=== PATIENT | male | born 1965 | race Caucasian/White ===

== ENCOUNTER 2019-11-18 11:20 | Outpatient (REF) | payer OTHER, SELFPAY ==
[2019-11-18 12:38] LABS: Anion Gap 11 (12-20); Blood Urea Nitrogen 16 mg/dL (9-16); Carbon Dioxide 27 mmol/L (22-29); Chloride 104 mmol/L (96-108); Estimated Glomerular Filt Rate > 60; Potassium 4.5 mmol/l (3.3-5.1); Sodium 137 mmol/L (135-145)
== END 2019-11-18 11:21 | disposition home or self-care (01) ==
LOC: HO.10HDL 11:20
PROVIDERS: Visit Provider Family Medicine
DX: I10 Essential (primary) hypertension (principal)
CPT/HCPCS: 80051; 82565; 84520

== ENCOUNTER 2019-12-12 09:54 | Outpatient (REF) | payer OTHER, SELFPAY ==
[2019-12-12 14:15] LABS: Estimated Average Glucose 108 mg/dL; Hemoglobin A1c % 5.4 %
[2019-12-12 14:23] LABS: Cholesterol 143 mg/dL; Glucose Fasting 102 mg/dL (60-99); HDL Cholesterol 53 mg/dL; LDL Cholesterol Calculated 71 mg/dl; Triglycerides 98 mg/dL
== END 2019-12-12 09:55 | disposition home or self-care (01) ==
LOC: HO.10HDL 09:54
PROVIDERS: Visit Provider Family Medicine
DX: E78.00 Pure hypercholesterolemia, unspecified (principal); R73.9 Hyperglycemia, unspecified; Z79.899 Other long term (current) drug therapy
CPT/HCPCS: 80061; 82947; 83036

== ENCOUNTER 2020-10-12 10:27 | Outpatient (REF) | payer OTHER, SELFPAY ==
[2020-10-12 14:00] LABS: Anion Gap 11 (12-20); Blood Urea Nitrogen 14 mg/dL (9-16); Carbon Dioxide 25 mmol/L (22-29); Chloride 106 mmol/L (96-108); Cholesterol 148 mg/dL; Estimated Glomerular Filt Rate > 60; Glucose Fasting 96 mg/dL (60-99); HDL Cholesterol 55 mg/dL; LDL Cholesterol Calculated 73 mg/dl; Potassium 4.4 mmol/L (3.3-5.1); Sodium 138 mmol/L (135-145); Triglycerides 101 mg/dL
== END 2020-10-12 10:28 | disposition home or self-care (01) ==
LOC: HO.10HDL 10:27
PROVIDERS: Visit Provider Family Medicine
DX: E78.00 Pure hypercholesterolemia, unspecified (principal); R73.9 Hyperglycemia, unspecified; I10 Essential (primary) hypertension
CPT/HCPCS: 36415; 80051; 80061; 82565; 82947; 84520

== ENCOUNTER 2021-06-14 10:34 | Outpatient (REF) | payer OTHER, SELFPAY ==
[2021-06-14 11:42] LABS: Alanine Aminotransferase 23 U/L (0-40); Anion Gap 11 (12-20); Blood Urea Nitrogen 16 mg/dL (9-16); Carbon Dioxide 25 mmol/L (22-29); Chloride 105 mmol/L (96-108); Cholesterol 152 mg/dL; Estimated Glomerular Filt Rate > 60; Glucose Fasting 99 mg/dL (60-99); HDL Cholesterol 49 mg/dL; LDL Cholesterol Calculated 84 mg/dl; Potassium 4.5 mmol/L (3.3-5.1); Sodium 136 mmol/L (135-145); Triglycerides 98 mg/dL
== END 2021-06-14 10:35 | disposition home or self-care (01) ==
LOC: HO.LAB 10:34
PROVIDERS: PCP Family Medicine; Visit Provider Family Medicine
DX: I10 Essential (primary) hypertension (principal); E78.00 Pure hypercholesterolemia, unspecified; Z79.899 Other long term (current) drug therapy; Z83.3 Family history of diabetes mellitus
CPT/HCPCS: 36415; 80051; 80061; 82550; 82565; 82947; 84460; 84520

== ENCOUNTER 2022-02-24 10:31 | Outpatient (REF) | payer OTHER, SELFPAY ==
[2022-02-24 14:24] LABS: Anion Gap 15 (12-20); Blood Urea Nitrogen 15 mg/dL (9-16); Carbon Dioxide 22 mmol/L (22-29); Chloride 104 mmol/L (96-108); Estimated Glomerular Filt Rate > 60; Potassium 4.4 mmol/L (3.3-5.1); Sodium 137 mmol/L (135-145)
[2022-02-24 14:32] LABS: Prostate Specific Antigen 1.33 ng/mL (<0.05-4.0)
== END 2022-02-24 10:32 | disposition home or self-care (01) ==
LOC: HO.HMGCLDS 10:31
PROVIDERS: PCP Family Medicine; Visit Provider Family Medicine
DX: I10 Essential (primary) hypertension (principal); N40.0 Benign prostatic hyperplasia without lower urinary tract symptoms; Z12.5 Encounter for screening for malignant neoplasm of prostate
CPT/HCPCS: 36415; 80051; 82565; 84153; 84520

== ENCOUNTER 2023-01-23 10:09 | Outpatient (REF) | payer OTHER, SELFPAY ==
[2023-01-23 14:08] LABS: Alanine Aminotransferase 22 U/L (0-40); Anion Gap 11 (12-20); Aspartate Amino Transferase 22 U/L (5-37); Blood Urea Nitrogen 16 mg/dL (9-16); Carbon Dioxide 24 mmol/L (22-29); Chloride 105 mmol/L (96-108); Cholesterol 147 mg/dL (<200); Estimated Glomerular Filt Rate > 60; Glucose Fasting 106 mg/dL (60-99); HDL Cholesterol 52 mg/dL (>40); LDL Cholesterol Calculated 83 mg/dL (<100); Potassium 4.2 mmol/L (3.3-5.1); Sodium 136 mmol/L (135-145); Triglycerides 64 mg/dL (<150)
== END 2023-01-23 10:10 | disposition home or self-care (01) ==
LOC: HO.HMGCLDS 10:09
PROVIDERS: PCP Family Medicine; Visit Provider Family Medicine
DX: I10 Essential (primary) hypertension (principal); E78.00 Pure hypercholesterolemia, unspecified; R73.9 Hyperglycemia, unspecified; Z79.899 Other long term (current) drug therapy
CPT/HCPCS: 36415; 80051; 80061; 82550; 82565; 82947; 84450; 84460; 84520

== ENCOUNTER 2023-08-28 09:00 | Day surgery (SDC) | payer OTHER, SELFPAY ==
[2023-08-26 14:39] VITALS: BMI 26.4
[2023-08-28 09:27] VITALS: BMI 26.3
[2023-08-28 09:30] VITALS: BP 148/87; PULSE 90; RESP 18; TEMP 36.9; O2SAT 98
--- NOTE | 2023-08-28 09:35 | P.CONAN_ITS ---
[facility] Past Medical History Medical History Elevated cholesterol HTN (hypertension) Family History Family history of problems with anesthesia: No Surgical History Surgical History (Updated 08/26/23 @ 14:39 by Nafisa Maguire RN) History of open reduction and internal fixation (ORIF) procedure H/O colonoscopy History of Problems with Anesthesia: No Social History Social History (Updated 08/26/23 @ 14:40 by Nafisa Maguire RN) Patient Tobacco Use Status: Former Tobacco user Tobacco use type: Cigarette Use of substances other than those prescribed or required for medical reasons: Yes Substance Use Type Other:: every other day Are you DNR?: No Advance Directives Date on File: 11/18/19 Meds Allergies Allergy/AdvReac Type Severity Reaction Status Date / Time No Known Allergies Allergy Verified 08/28/23 09:23 Active Medications: Current Medications Sodium Biphosphate/Sodium Phosphate (Sodium Phosphate,[place]-Dibasic 133 Ml Enema) 133 ml ND ONCE PRN PRN Reason: Poor Colonoscopy Prep Results Home Medications ?Medication ?Instructions ?Recorded ?Confirmed ?Last Taken ?Type lisinopril 10 mg tablet 10 mg PO DAILY 08/26/23 08/26/23 Unknown History simvastatin 40 mg tablet 40 mg PO BEDTIME 08/26/23 08/26/23 Unknown History Exam Height,Weight and Vital Signs: Height 5 ft 9 in Weight 80.739 kg Airway Mallampati Class: II TM Dist: >3cm Neck ROM: Full Assessment and Plan Assessment Anesthesia Assessment: Anesthesia Plan Discussed and Chart Reviewed Final Anesthetic Review Family History of Problems with Anesthesia: No History of Problems with Anesthesia: No ASA Class: II Final Preanesthetic Review: No Changes in Pt Med Stat, Meds/Allgs Chart Reviewed, Consent Obtained/Reviewed and Anes Risks/Benef Reviewed Patient Risk: Low Procedure Risk: Low Anesthetic Plan Anesthetic Plan: TIVA Disposition: Standard PACU
[2023-08-28] MEDS: Lactated Ringers 1,000 ML 100 ML IVCONT (09:54)
--- NOTE | 2023-08-28 10:26 | PC.NURSE ---
24hr update documented on paper
--- NOTE | 2023-08-28 10:46 | P.BOP_ITS ---
Brief Operative Note Date of Service: 08/28/23 Pre-op diagnosis: Screening Post-op diagnosis: other (Diverticulosis) Procedure: Colonoscopy to the cecum and TI Surgeon: Arian Mccoy MD Anesthesia: MAC Was an Global Upstream Marketing Manager used for this Procedure?: No Estimated blood loss (mL): 0 Pathology: none sent Condition: stable Disposition: PACU
[2023-08-28 10:47] VITALS: BP 101/66; PULSE 75; RESP 14; TEMP 36.6; O2SAT 97
[2023-08-28 11:02] VITALS: BP 114/76; PULSE 78; RESP 20; TEMP 36.6; O2SAT 99
--- NOTE | 2023-08-28 22:23 | OP_ITS ---
DATE OF SERVICE: 08/28/2023 SURGEON: Arian Mccoy MD INDICATIONS: The patient presents for evaluation of colorectal cancer screening and personal history of tubular adenoma of the colon. Full consent was obtained from him for this, including risks of bleeding and perforation. PREOPERATIVE DIAGNOSIS: Colorectal cancer screening and personal history of tubular adenoma of the colon. POSTOPERATIVE DIAGNOSIS: PROCEDURE PERFORMED: Colonoscopy to cecum and terminal ileum. ESTIMATED BLOOD LOSS: COMPLICATIONS: ANESTHESIA: Monitored anesthesia care. ASSISTANTS: SPECIMENS: POSTOPERATIVE DIAGNOSES: Colorectal cancer screening and personal history of tubular adenoma of the colon, mild sigmoid diverticulosis, small internal hemorrhoids. DESCRIPTION OF PROCEDURE: The patient was placed in the left lateral decubitus position. The digital rectal exam revealed no abnormalities. The Olympus video pediatric colonoscope was entered into the rectum and advanced easily to the cecum. Once in the cecum, I did identify normal-appearing cecal pouch with appendiceal orifice and a normal-appearing ileocecal valve. The terminal ileum was cannulated and appeared normal. The scope was withdrawn back in the colon. The entire cecum and ileocecal valve appeared normal. The scope was then slowly withdrawn assessing all mucosal surfaces carefully. Preparation was excellent. I did not visualize any sign of polyps, colitis, nor angiodysplasia. There was a mild amount of sigmoid diverticulosis. In the rectum, scope was retroflexed visualizing small internal hemorrhoids, but no other pathology. The rectal mucosa appeared normal. Scope was straightened and withdrawn from the patient. He tolerated the procedure well and was returned to the recovery area in stable condition. IMPRESSION: 1. Mild sigmoid diverticulosis. 2. Small internal hemorrhoids. PLAN: Given his previous history, I would recommend a followup colonoscopy in 5 years for surveillance. He will otherwise see me on a p.r.n. basis. MD TIMMY Souza/TERESA / [phone]
== END 2023-08-28 11:18 | disposition home or self-care (01) ==
LOC: HO.SSS 12:38
PROVIDERS: PCP Family Medicine; Visit Provider Internal Medicine
PROC: 0DJD8ZZ Inspection of Lower Intestinal Tract, Via Natural or Artificial Opening Endoscopic (ICD-10-PCS; CPT 45378; principal; 2023-08-28 10:10)
DX: Z12.11 Encounter for screening for malignant neoplasm of colon (principal); Z86.010 Personal history of colon polyps; K57.30 Diverticulosis of large intestine without perforation or abscess without bleeding; K64.8 Other hemorrhoids; I10 Essential (primary) hypertension; E78.5 Hyperlipidemia, unspecified; Z79.899 Other long term (current) drug therapy; Z87.891 Personal history of nicotine dependence
CPT/HCPCS: 45378; J2704

== ENCOUNTER 2023-09-04 10:03 | Outpatient (REF) | payer OTHER, SELFPAY ==
[2023-09-04 11:07] LABS: Alanine Aminotransferase 23 U/L (0-40); Anion Gap 12 (12-20); Aspartate Amino Transferase 18 U/L (5-37); Blood Urea Nitrogen 14 mg/dL (9-16); Carbon Dioxide 22 mmol/L (22-29); Chloride 107 mmol/L (96-108); Estimated Glomerular Filt Rate > 60; Sodium 137 mmol/L (135-145)
== END 2023-09-04 10:04 | disposition home or self-care (01) ==
LOC: HO.10HDL 10:03
PROVIDERS: Visit Provider Family Medicine
DX: I10 Essential (primary) hypertension (principal); E78.00 Pure hypercholesterolemia, unspecified
CPT/HCPCS: 36415; 80051; 82550; 82565; 84450; 84460; 84520

== ENCOUNTER 2024-02-19 09:39 | Outpatient (REF) | payer BC, SELFPAY ==
--- OUTSIDE RECORDS SUMMARY | 2024-02-19 09:44 | XMS_ITS ---
Author Organization [facility] Address [address] [place] [address] Care Team Providers Care Retaining Room Cutter Name Role Phone Milind Mcnair MD Primary Care Provider Unavailab Arian Starks Unavailable [phone] REASON FOR VISIT PLEASE OBTAIN INSURANCE PHONE NUMBER Encounters Encounter Location Date Provider Diagnosis [facility] [address] [place] [address] 04/01/2023 Arian Mccoy PLAN OF TREATMENT No Information
--- OUTSIDE RECORDS SUMMARY | 2024-02-19 09:44 | XMS_ITS ---
Author Organization [facility] Address [address] [place] [address] Care Team Providers Care Diabetes Clinical Manager Name Role Phone Xu KHAN, Milind Primary Care Provider Arian Leo Unavailable [phone] ALLERGIES No Known Allergies REASON FOR VISIT Patient presents today for a screening colonoscopy MEDICATIONS Medication SIG (Take, Route, Fr equency, Duration) Notes Start Date End Date Status Simvastatin 40 MG 1 tablet in the even ing Orally Once a day Active Lisinopril 10 MG 1 tablet Orally Once a day Active SOCIAL HISTORY Tobacco Use: Social History Observation Description Date Details (start date - stop date) Former Smoker NA - NA Sex Assigned At : Social History Observation Description Sex Assigned At Unknown Tobacco Use/Smoking Question Answer Notes Patient is a former smoker How long has it been since you last smoked? > 10 years Alcohol Screen Question Answer Notes Did you have a drink contain ing alcohol in the past year? Yes How often did you have a dri nk containing alcohol in the past year? 2 to 4 times a month (2 points) How many drinks did you have on a typical day when you were drinking in the past year? 3 or 4 drinks (1 point) How often did you have 6 or more drinks on one occasion in the past year? Never (0 point) Points 3 Interpretation Negative PROBLEMS Problem Type ICD Code Onset Dates Problem Status W/U Status Risk SNOMED Code Notes Problem History of adenomatous polyp of colon (Z86.010) Active confirmed History of adenomatous polyp of colon (863121327) VITAL SIGNS BMI 26.47 kg/m2 05/01/2023 Blood pressure systolic 000 mm Hg 05/01/19 24 Blood pressure diastolic 00 mm Hg 024 Height 69 in 05/01/2023 Temperature 97.7 degrees Fahrenheit 05/01/19 24 Weight 179 lb 4 oz lbs 05/01/2023 Encounters Encounter Location Date Provider Diagnosis [facility] [address] [place] [address] 05/01/2023 Arian Mccoy Encounter for screen ing for malignant neoplasm of colon Z12.11 ; Preprocedural examination Z01.818 and History of adenomatous polyp of colon Z86.010 ASSESSMENTS Encounter Date Diagnosis Assessment Notes Treatment Notes Treatment Clinical Notes 05/01/2023 Encounter for screening for malignant neoplasm of colon (ICD-10 - Z12.11) 05/01/2023 Preprocedural examination (ICD-10 - Z01.818) 05/01/2023 History of adenomatous polyp of colon (ICD-10 - Z86.010) PLAN OF TREATMENT Future Test Test Name Order Date COLONOSCOPY 05/01/2023 Next Appt Details Follow Up: prn, Reason: Progress Notes * Examination Category Sub-Category Detail Notes General Examination GENERAL APPEARANCE: pleasant , well nourished, well developed, in no acute distress HEAD: EYES: sclera non-icteric EARS: NOSE: THROAT: NECK/THYROID: no cervical lymphade nopathy, neck supple HEART: S1, S2 normal CHEST: LUNGS: clear to auscultatio n bilaterally ABDOMEN: normal bowel sounds, no guarding or rigidity, no guarding or rigidity, no masses palpable, soft, nontender, nondistended NEUROLOGIC: alert and oriented SKIN: nonjaundiced, no spi josephine angiomata EXTREMITIES: no edema PERIPHERAL PULSES: BACK: BREASTS: MUSCULOSKELETAL: MALE GENITOURINARY: LYMPH NODES: RECTAL EXAM: FEMALE GENITOURINARY: ORAL CAVITY: mucosa moist
--- OUTSIDE RECORDS SUMMARY | 2024-02-19 09:44 | XMS_ITS | Patient Health Record ---
Author Organization [facility] Address [address] [place] [address] Care Team Providers Care Business Process Consultant Name Role Phone Milind Mcnair MD Primary Care Provider Arian Leo Unavailable [phone] ALLERGIES No Known Allergies REASON FOR REFERRAL No Information MEDICATIONS Medication SIG (Take, Route, Fr equency, Duration) Notes Start Date End Date Status Simvastatin 40 MG 1 tablet in the even ing Orally Once a day Active Lisinopril 10 MG 1 tablet Orally Once a day Active IMMUNIZATIONS Vaccine Route Administration Date Status Comme nts Influenza Unknown 10/28/2022 Administered SOCIAL HISTORY Tobacco Use: Social History Observation [...] W/U Status Risk SNOMED Code Notes Problem Encounter for screening for malignant neoplasm of colon (Z12.11) Active confirmed 865601488 Problem Preprocedural examination (Z01.818) Active confirmed 208835768 Problem History of adenomatous polyp of colon (Z86.010) Active confirmed History o f adenomatous polyp of colon (389251467) Problem Personal history of colonic polyps (Z86.010) Active confirmed History of polyp of colon (situation) (869661415) Problem Diverticulosis of large intestine without perforation or abscess without bleeding (K57.30) Active confirmed Diverticul ar disease of colon (902939576) VITAL SIGNS Temperature 97.7 degrees Fahrenheit 05/01/2023 Blood pressure diastolic 00 mm Hg 05/01/2023 Height 69 in 05/01/2023 Blood pressure systolic 000 mm Hg 05/01/2023 Weight 179 lb 4 oz lbs 05/01/2023 BMI 26.47 kg/m2 05/01/2023 Encounters Encounter Location Date Provider Diagnosis [facility] [place] Out[facility] [address] [place], [place] [phone] 08/28/2023 Arian Mccoy Encounter for screen ing colonoscopy Z12.11 ; Personal history of colonic polyps Z86.010 ; Diverticulosis of large intestine without perforation or abscess without bleeding K57.30 and Other hemorrhoids K64.8 [facility] [address] [place] [address] 05/01/2023 Arian Mccoy Encounter for screen ing for malignant neoplasm of colon Z12.11 ; Preprocedural examination Z01.818 and History of adenomatous polyp of colon Z86.010 [facility] [address] [place] [phone] 04/01/2023 rAian Mccoy ASSESSMENTS Encounter Date Diagnosis Assessment Notes Treatment Notes Treatment Clinical Notes 08/28/2023 Encounter for screening colonoscopy (ICD-10 - Z12.11) 08/28/2023 Personal history of colonic polyps (ICD-10 - Z86.010) 05/01/2023 Encounter for screening for malignant neoplasm of colon (ICD-10 - Z12.11) 05/01/2023 Preprocedural examination (ICD-10 - Z01.818) 08/28/2023 Diverticulosis of large intestine without perforation or abscess without bleeding (ICD-10 - K57.30) 05/01/2023 History of adenomatous polyp of colon (ICD-10 - Z86.010) 08/28/2023 Other hemorrhoids (ICD-10 - K64.8) PLAN OF TREATMENT Future Test Test Name Order Date COLONOSCOPY 05/01/2023 Insurance Providers Payer Name Payer Address Payer Phone Subscriber Number Group Number Insured Name Patient Relationship to Insured Coverage Start Date Coverage End Date [facility] [address] [place] [id number] PARKER MCNEAL Self - patient is the insured MEDICAL (GENERAL) HISTORY Medical History History ICD Code Denies ME,DM,CVA,Lung disease,renal dise ase Hypertension Hyperlipidemia Colonoscopy 03/2017 with 1 small tubular adenoma removed Surgical History Surgery Date(Month/Year) Compound fracture on right forearm 1992
--- OUTSIDE RECORDS SUMMARY | 2024-02-19 09:44 | XMS_ITS ---
Author Organization [facility] Address [address] [place] [address] Care Team Providers Care Molded Parts Inspector Name Role Phone Xu KHAN, Milind Primary Care Provider Unavailab Arian Starks Unavailable [phone] REASON FOR VISIT screening,hx polyps PROBLEMS Problem Type ICD Code Onset Dates Problem Status W/U Status Risk SNOMED Code Notes Problem Personal history of colonic polyps (Z86.010) Active confirmed History of polyp of colon (situation) (570633687) Problem Diverticulosis of large intestine without perforation or abscess without bleeding (K57.30) Active confirmed Diverticul ar disease of colon (686363617) Encounters Encounter Location Date Provider Diagnosis [facility] [place] Out[facility] [address] [place], [place] [phone] 08/28/2023 Arian Mccoy Encounter for scre ening colonoscopy Z12.11 ; Personal history of colonic polyps Z86.010 ; Diverticulosis of large intestine without perforation or abscess without bleeding K57.30 and Other hemorrhoids K64.8 ASSESSMENTS Encounter Date Diagnosis Assessment Notes Treatment Notes Treatment Clinical Notes 08/28/2023 Encounter for screening colonoscopy (ICD-10 - Z12.11) 08/28/2023 Personal history of colonic polyps (ICD-10 - Z86.010) 08/28/2023 Diverticulosis of large intestine without perforation or abscess without bleeding (ICD-10 - K57.30) 08/28/2023 Other hemorrhoids (ICD-10 - K64.8) PLAN OF TREATMENT No Information
[2024-02-19 11:13] LABS: Anion Gap 8 (12-20); Blood Urea Nitrogen 19 mg/dL (9-16); Carbon Dioxide 26 mmol/L (22-29); Chloride 109 mmol/L (96-108); Estimated Glomerular Filt Rate > 60; Glucose Fasting 114 mg/dL (60-99); Potassium 4.2 mmol/L (3.3-5.1); Sodium 139 mmol/L (135-145)
== END 2024-02-19 09:40 | disposition home or self-care (01) ==
LOC: HO.10HDL 09:39
PROVIDERS: Visit Provider Family Medicine
DX: Z13.89 Encounter for screening for other disorder (principal)
CPT/HCPCS: 36415; 80051; 82565; 82947; 84520

== ENCOUNTER 2024-07-15 10:03 | Outpatient (REF) | payer BC, SELFPAY ==
--- OUTSIDE RECORDS SUMMARY | 2024-07-15 10:46 | XMS_ITS ---
Author Organization [facility] Address [address] [place] [address] Care Team Providers Care Bundle Clerk Name Role Phone Xu KHAN, Milind Primary Care Provider Unavailab Arian Starks Unavailable [phone] REASON FOR VISIT PLEASE OBTAIN INSURANCE PHONE NUMBER Encounters Encounter Location Date Provider Diagnosis [facility] [address] [place] [phone] 04/01/2023 Arian Mccoy Plan Of Treatment No Information Progress Notes * PARKER MCNEAL GDOB:1965 (57 yo M)Acc No.[id number]:04/01/2023 Patient:?PARKER MCNEAL :1965???Age:57 Y???Sex:Male Address:[address] [place] [address], [address] * true * Date:? Generated for Manas rose/Derek/eTransmitting on:?07/15/2024 10:45 AM EDT
[2024-07-15 13:54] LABS: Glucose Fasting 106 mg/dL (60-99)
[2024-07-15 14:03] LABS: Estimated Average Glucose 114 mg/dL; Hemoglobin A1C 160.5243 umol/L; Hemoglobin A1c % 5.6 % (<6.0)
== END 2024-07-15 10:04 | disposition home or self-care (01) ==
LOC: HO.HMGCLDS 10:03
PROVIDERS: PCP Family Medicine; Visit Provider Family Medicine
DX: R73.09 Other abnormal glucose (principal)
CPT/HCPCS: 36415; 82947; 83036

== ENCOUNTER 2024-11-09 15:49 | Outpatient (AMB) | payer BC, SELFPAY ==
--- NOTE | 2024-11-09 16:02 | A.OFFPC_ITS ---
Vital Signs 11/09/24 16:09 Height 5 ft 9 in Weight 81.647 kg BMI 26.6 BP 132/88 Respiration 14 Pulse 71 Pulse Source Pulse Oximeter Temp 97.4 F Temp Source Temporal Artery Scan Pulse Oximetry (%) 97 Oxygen Delivery Method Room Air Intake Visit Reasons: 4 MO F/UP - ADONIS PT - WILL WANT DR. 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 Required: No Accompanied by: Self / Same As Patient Allergies No Known Allergies Allergy (Verified 11/09/24 16:04) Tobacco use date assessed: 11/09/24 Dental Screening Dental Screen Date: 11/09/24 Did you have a dental visit in the last 12 months?: Yes Did you have a dental problem in the last 6 months where you did not have access to dental care?: No Was dental information given to patient?: No HPI HPI Comments History of Present Illness Details 59-year-old male with history of GERD, h ypercholesterolemia, hypertension, colon polyp, BPH, osteoarthritis presenting to the office today for management of chronic conditions and to establish care. He is a former patient of Dr. Mcnair, last seen 06/2024 Hypertension-blood pressure in the office 132/88. Compliant with lisinopril 10 mg daily Hypercholesterolemia-last LDL 86 on 01/2023. Compliant with simvastatin 40 mg daily BPH-no LUTS GERD-managed with diet Concerns: Left knee pain-ongoing for several months. No specific injury but does question overuse. He walks about [address] steps daily on concrete wearing steel-toed boots at work. The pain is intermittent rated as a 2-3. Located along the medial aspect of the knee without any radiation. No numbness or tingling. Describes a tightness when squatting down. Unable to identify any other tr iggers. Not specifically occurring after prolonged periods of rest. No exacerbation of pain on stairs or with twisting motion. He has used ice occasionally but otherwise has not required any analgesics. Was evaluated by prior PCP who suspected this was primary osteoarthritis of the left knee. Health maintenance: Last screening colonoscopy 08/2023 with 5 year follow-up advised, Dr. Mccoy ROS: See HPI EXAM: Constitutional - Awake and Alert, No apparent distress Eyes - PERRL Cardiovascular - S1S2, RRR, No edema Respiratory - Normal lung expansion, Normal respiratory effort, No respiratory distress, CTA bilaterally Extremities - no calf tenderness bilaterally, no swelling MSK-left knee-no swelling, effusion, warmth, erythema. Nontender to palpation. Full flexion and extension. Negative Jose test. No joint laxity Skin - Warm/Dry Neurological - Alert & oriented x3 Psychological - Appropriate affect [facility] Medical History (Updated 11/09/24 @ 16:49 by ED Lombardi) BPH (benign prostatic hyperplasia) GERD (gastroesophageal reflux disease) Elevated cholesterol HTN (hypertension) Surgical History History of open reduction and internal fixation (ORIF) procedure H/O colonoscopy Family History (Updated 11/09/24 @ 16:28 by ED Lombardi) Father CAD (coronary artery disease) Social History Housing: House Patient Tobacco Use Status: Former Tobacco user Tobacco use type: Cigarette e-Cigarette/Vaping Use: Currently Using (occasionally) Advance Directives Date on File: 11/18/19 service: Yes ([employer]) Current occupational status: employed Current occupation: [employer] Cognitive needs: No Hearing needs: No Vision needs: Yes (Reading glasses) Questionnaire PHQ-9 Over the last 2 weeks, how often have you been bothered by any of the following problems? 1. Little interest or pleasure in doing things: not at all 2. Feeling down, depressed, or hopeless: not at all 3. Trouble falling or staying asleep, or sleeping too much: not at all 4. Feeling tired or having little energy: not at all 5. Poor appetite or overeating: not at all 6. Feeling bad about yourself - or that you are a failure or have let yourself or your family down: not at all 7. Trouble concentrating on things, such as reading the newspaper or watching television: not at all 8. Moving or speaking so slowly that other people could have noticed. Or the opposite - being so fidgety or restless that you have been moving around a lot more than usual: not at all 9. Thoughts that you would be better off or of hurting yourself in some way: not at all Total score: 0 Source: Developed by Drs. Arian LNettie Morales Kurt Kroenke and colleagues, with an educational mackenzie from [email or web address]. Thrive Questionnaire Date Thrive assessed: 11/09/24 I am a: Patient What is your living situation today?: I have a steady place to live Within the past 12 months, did the food you bought not last and you didn't have the money to get more?: Never true Within the past 12 months, did you worry whether your food would run out before you got money to buy more?: Never true Do you have trouble paying for medicines?: No Do you have trouble getting transportation to medical appointments?: No Do you have trouble paying your heating and electricity bill?: No Do you have trouble taking care of your child, family member or friend?: No Do you have trouble with day-to-day activities such as bathing, preparing meals, shopping, managing finances, etc.?: No Are you currently unemployed and looking for a job?: No Are you interested in more education?: No Please select the resources that you would like help with: None THRIVE Score: 0 AUDIT C Alcohol Use Questionnaire (AUDIT-C) 1. How often do you have a drink containing alcohol?: 2-4 times a month 2. How many drinks containing alcohol do you have on a typical day when you are drinking?: 1 or 2 Total Score: 2 MATY-7 AMB Questionnaire MATY-7 Date MATY - 7 assessed: 11/09/24 Feeling nervous, anxious, or on edge: 0 = Not at all Not being able to stop or control worryin = Not at all Worrying too much about different things: 0 = Not at all Trouble relaxin = Not at all Being so restless that it is hard to sit still: 0 = Not at all Becoming easily annoyed or irritable: 0 = Not at all Feeling afraid as if something awful might happen: 0 = Not at all Total MATY-7 score (0-4 normal; 5-9 mild; 10-14 moderate; 15-21 severe): 0 Source: Developed by Nettie Almaraz Kurt Kroenke and colleagues, with an educational mackenzie from [email or web address]. Physical exam (Primary Care) Vital Signs: Last Vital Signs Temp 97.4 F 11/09/24 16:09 Pulse 71 11/09/24 16:09 Resp 14 11/09/24 16:09 BP 132/88 11/09/24 16:09 Pulse Ox 97 11/09/24 16:09 Oxygen Delivery Method Room Air 11/09/24 16:09 BMI result Body Mass Index 26.6 Tobacco/Smoking Status: Tobacco use Status Tobacco use date assessed 11/09/24 11/09/24 16:12 Patient Tobacco Use Status Former Tobacco user 11/09/24 16:03 Tobacco use type Cigarette 11/09/24 16:03 e-Cigarette/Vaping Use Currently Using ( 11/09/24 16:12 occasionally) PHQ-9: PHQ-9 Score PHQ-9: Total score 0 11/09/24 16:13 Thrive Assessment: Date of Thrive Assessment Date Thrive assessed 11/09/24 11/09/24 16:13 Coding Level of Care Code New Pt Level 4 (91274) Complex EM visit Add On G2211 Diagnoses HTN (hypertension) I10 Elevated cholesterol E78.00 Left knee pain M25.562 GERD (gastroesophageal reflux disease) K21.9 BPH (benign prostatic hyperplasia) N40.0 Assessment & Plan Assessment & Plan (1) HTN (hypertension): Code(s): I10 - Essential (primary) hypertension Category: Medical Plan: Controlled. Continue lisinopril 10 mg daily (2) Elevated cholesterol: Code(s): E78.00 - Pure hypercholesterolemia, unspecified Category: Medical Plan: Previously well-controlled. Continue simvastatin 40 mg at bedtime. Will re- evaluate lipid panel prior to following visit. Diet low in saturated fats and highly processed foods. (3) Left knee pain: Code(s): M25.562 - Pain in left knee Category: Medical Plan: Suspect this is likely mild osteoarthritis, less likely MCL strain, even less likely meniscal tear. X-ray of the left knee ordered. Follow-up plan to be determined pending results. Can use ibuprofen, ice, rest, compression as needed (4) GERD (gastroesophageal reflux disease): Code(s): K21.9 - Gastro-esophageal reflux disease without esophagitis Category: Medical Plan: Stable. Avoid triggering foods (5) BPH (benign prostatic hyperplasia): Code(s): N40.0 - Benign prostatic hyperplasia without lower urinary tract symptoms Category: Medical Plan: No LUTS. Monitor Plan Follow-up in the office in 6 months with labs completed prior to visit Orders: Orders Basic Metabolic Panel 6 Months E78.00 - Pure hypercholesterolemia, unspecified, I10 - Essential (primary) hypertension Liver Panel 6 Months E78.00 - Pure hypercholesterolemia, unspecified, I10 - Essential (primary) hypertension Prostate Specific Antigen 6 Months E78.00 - Pure hypercholesterolemia, unspecified, I10 - Essential (primary) hypertension XR knee LT 3V Today M25.562 - Pain in left knee Lipid Panel 6 Months E78.00 - Pure hypercholesterolemia, unspecified, I10 - Essential (primary) hypertension
[2024-11-09 16:09] VITALS: BP 132/88; PULSE 71; RESP 14; TEMP 36.3; O2SAT 97; BMI 26.6
== END 2024-11-09 16:40 | disposition home or self-care (01) ==
LOC: HO.HMCHD 15:50
PROVIDERS: PCP Family Medicine; Visit Provider Physician Assistant
DX: I10 Essential (primary) hypertension (principal); E78.00 Pure hypercholesterolemia, unspecified; M25.562 Pain in left knee; K21.9 Gastro-esophageal reflux disease without esophagitis; N40.0 Benign prostatic hyperplasia without lower urinary tract symptoms

== ENCOUNTER 2024-12-02 09:36 | Outpatient (REF) | payer BC, SELFPAY ==
--- OUTSIDE RECORDS SUMMARY | 2023-08-28 06:00 | XMS_ITS ---
Author Organization [facility] Address [address] [place] [address] Care Team Providers Care President Sales And Marketing Name Role Phone Xu (RETIRED) Milind KHAN Primary Care Provider Unavailable Arian Mccoy Unavailable [phone] REASON FOR VISIT screening,hx polyps Problems Problem Type SNOMED Code ICD Code Onset Dates Problem Status W/U Status Risk Notes Problem Information temporarily unavailable Personal history of colonic polyps (Z86.010) Active confirmed Problem Information temporarily unavailable Diverticulosis of large intestine without perforation or abscess without bleeding (K57.30) Active confirmed Encounters Encounter Location Date Provider Diagnosis [facility] [place] [address] [place] [phone] 08/28/2023 Arian Mccoy Encounter for scre ening colonoscopy Z12.11 ; Personal history of colonic polyps Z86.010 ; Diverticulosis of large intestine without perforation or abscess without bleeding K57.30 and Other hemorrhoids K64.8 Assessments Encounter Date Diagnosis (ICD Code) Assessment Notes Treatment Notes Treatment Clinical Notes Section Notes 08/28/2023 Encounter for screening colonoscopy (ICD-10 - Z12.11) 08/28/2023 Personal history of colonic polyps (ICD-10 - Z86.010) 08/28/2023 Diverticulosis of large intestine without perforation or abscess without bleeding (ICD-10 - K57.30) 08/28/2023 Other hemorrhoids (ICD-10 - K64.8) Plan Of Treatment No Information Progress Notes * PARKER MCNEAL GDOB:1965 (59 yo M)Acc No.[id number]:08/28/2023 COLON WITH MAC Patient: PARKER PORTILLO Provider: Luana Mccoy MD :1965 A ge:58 Y S ex:Male Date:08/28/2023 Address:[address] [place] [address] [id number] Pcp:Milind Mcnair (RETIRED) MD Subjective: * Chief Complaints: * 1 . Screening,hx polyps. * Medical History: Objective: * Vitals: Assessment: * Assessment: 1. E ncounter for screening colonoscopy - Z12.11 (Primary) 2 . P ersonal history of colonic polyps - Z86.010 3 . D iverticulosis of large intestine without perforation or abscess without bleeding - K57.30 4 . O ther hemorrhoids - K64.8? Plan: * Treatment: * Procedure Codes: 4 5378 DIAGNOSTIC COLONOSCOPY * Preventive Medicine: GILBERT Screening: C olonoscopy W as interval between colonoscopies three years or more? Y es, W as last colonoscopy performed three or more years ago? Y es. * * The named appointment provid er may or may not be the originator of this progress note, and it is not deemed complete until electronically signed by the appointment provider. Sign off status: Pending * Provider: Luana Mccoy MD Date: 0 08/28/2023 Generated for Manas rose/Derek/eTransmitting on: 1 10:47 AM EDT
--- NOTE | ~2024-12-02 | XR_ITS ---
EXAMINATION: XR KNEE 4 OR MORE VIEWS LEFT HISTORY: M25.562 - Pain in left knee COMPARISON: There are no prior studies available for comparison. FINDINGS: Four views of the left knee are submitted. Osseous mineralization is normal. There is no fracture or dislocation. There are marginal osteophytes involving the medial and patellofemoral compartments. The soft tissues are unremarkable. There is no joint effusion. XR/XR knee LT 4V IMPRESSION: Mild degenerative changes as described. Electronically signed by: Arian Coyne MD 12/02/2024 10:02 AM EDT
--- OUTSIDE RECORDS SUMMARY | 2024-12-02 10:47 | XMS_ITS ---
Author Organization Unknown ENCOUNTERS Encounter Performer Location Date Diagnosis Diagnosis Status Pre Admit [address] [address] [id number] [facility] [address] [address] [id number] [facility] *Note: Encounters from your own facility or health system may be excluded. Allergies, Adverse Reactions, Alerts Allergen Type Severity Identification Date Medications Name Date Quantity Days Supplied [facility] Number
--- OUTSIDE RECORDS SUMMARY | 2024-12-02 10:47 | XMS_ITS | Patient Health Record ---
Author Organization [facility] Address [address] [place] [address] Care Team Providers Care Certified Home Health Aide Name Role Phone Xu (RETIRED) Milind KHAN Primary Care Provider Unavailable Arian Mccoy Unavailable [phone] Allergies No Known Allergies Reason For Referral No Information Medications Medication SIG (Take, Route, Fr equency, Duration) Notes Start Date End Date Status Simvastatin 40 MG 1 tablet in the even ing Orally Once a day Active Lisinopril 10 MG 1 tablet Orally Once a day Active Immunizations Vaccine Route Administration Date Status Comme nts Influenza Unknown 10/28/2022 Administered Social History Tobacco Use: Social History Observation Description Date Details (start date - stop date) Former Smoker NA - NA Tobacco Use/Smoking Question Answer Notes Patient is [...] Never (0 point) Points 3 Interpretation Negative Section Notes: Nonsmoker > 10 years; no sig alcohol Nonsmoker > 10 years; no sig alcohol Problems Problem Type SNOMED Code ICD Code Onset Dates Problem Status W/U Status Risk Notes Problem Information temporarily unavailable Encounter for screening for malignant neoplasm of colon (Z12.11) Active confirmed Problem Information temporarily unavailable History of adenomatous polyp of colon (Z86.010) Active confirmed Problem Information temporarily unavailable Personal history of colonic polyps (Z86.010) Active confirmed Problem Information temporarily unavailable Diverticulosis of large intestine without perforation or abscess without bleeding (K57.30) Active confirmed Problem Information temporarily unavailable Preprocedural examination (Z01.818) Active confirmed Plan Of Treatment Future Test Test Name Order Date COLONOSCOPY 05/01/2023 Insurance Providers Payer Name Payer Address Payer Phone Subscriber Number Group Number Insured Name Patient Relationship to Insured Coverage Start Date Coverage End Date [facility] [address] [place] Soler [id number] PARKER MCNEAL Self - patient is the insured Medical (General) History Medical History History ICD Code Denies [place],DM,CVA,Lung disease,renal dise ase Hypertension Hyperlipidemia Colonoscopy 03/2017 with 1 small tubular adenoma removed Surgical History Surgery Date(Month/Year) Compound fracture on right forearm 1992
== END 2024-12-02 09:37 | disposition home or self-care (01) ==
LOC: HO.HMGCX 09:36
PROVIDERS: Visit Provider Physician Assistant
DX: M25.562 Pain in left knee (principal)
CPT/HCPCS: 73564

== ENCOUNTER → 2024-12-02 09:45 | Outpatient (BNV) | payer BC, SELFPAY | PROVIDERS: Visit Provider Radiology Diagnostic Radiology | DX: M25.762 Osteophyte, left knee (principal) | CPT/HCPCS: 73564 ==